=== PATIENT | male | born 1930 | race Caucasian/White ===

== ENCOUNTER 2018-12-16 11:55 | Inpatient (IN) | payer OTHER ==
[~2018-12-16] VITALS: Ht 177.8 cm; Wt 63.5 kg
[2018-12-16] MEDS ORDERED: LIPITOR20 MG PO ×2 (12:17→12:18)
[2018-12-16] MEDS ORDERED: FEOSOL325 MG PO (12:19)
[2018-12-16] MEDS ORDERED: PRILOSEC10 MG PO (12:19)
[2018-12-16] MEDS ORDERED: ZESTRIL40 M1 PO (12:20)
[2018-12-16] MEDS ORDERED: SIMETHICONE80 MG PO (12:20)
[2018-12-16] MEDS ORDERED: TAMS0.4C PO (12:21)
[2019-02-01] MEDS ORDERED: IPRATROPIU0.2 MG/1 M IH (15:52)
[2019-02-01] MEDS ORDERED: METOLAZONE2.5 MG PO (15:52)
[2019-02-01] MEDS ORDERED: ALBUTEROL2.5 MG/3 M IH (15:52)
[2019-02-01] MEDS ORDERED: BUMETANIDE0.5 MG PO (15:52)
[2019-02-01] MEDS ORDERED: ACIDOPHILUS-PE1 EAC2 PO (15:52)
[2019-02-01] MEDS ORDERED: PROTEINEX-18 LI30 ML PO (15:52)
[2019-02-01] MEDS ORDERED: PANTOPRAZOLE SO40 MG PO (15:52)
[2019-02-01] MEDS ORDERED: TAMS0.4C PO (15:52)
[2019-02-01] MEDS ORDERED: CALCIUM 500 +1 EACH PO (15:52)
[2019-02-01] MEDS ORDERED: LIPITOR20 MG PO (15:52)
[2019-02-01] MEDS ORDERED: FEOSOL325 MG PO (15:52)
== END 2019-02-01 18:35 | DRG 356 ==
LOC: ER 11:55 → MEDJ 12-17 10:14 → ICU 01-18 15:22 → MEDJ 01-26 14:31
PROVIDERS: Radiology Vascular & Interventional Radiology; ADMIT Internal Medicine
PROC: BT43ZZZ Ultrasonography of Bilateral Kidneys (ICD-10-PCS; 2018-12-17)
PROC: 0T9B70Z Drainage of Bladder with Drainage Device, Via Natural or Artificial Opening (ICD-10-PCS; 2018-12-18)
PROC: 0DBL8ZX Excision of Transverse Colon, Via Natural or Artificial Opening Endoscopic, Diagnostic (ICD-10-PCS; 2018-12-20)
PROC: 8E0ZXY6 Isolation (ICD-10-PCS; 2018-12-21)
PROC: 3E0F7GC Introduction of Other Therapeutic Substance into Respiratory Tract, Via Natural or Artificial Opening (ICD-10-PCS; 2019-01-06)
PROC: BW24ZZZ Computerized Tomography (CT Scan) of Chest and Abdomen (ICD-10-PCS; 2019-01-07)
PROC: 4A033R1 Measurement of Arterial Saturation, Peripheral, Percutaneous Approach (ICD-10-PCS; 2019-01-07)
PROC: 4A12X4Z Monitoring of Cardiac Electrical Activity, External Approach (ICD-10-PCS; 2019-01-07)
PROC: B246ZZZ Ultrasonography of Right and Left Heart (ICD-10-PCS; 2019-01-08)
PROC: 02HV33Z Insertion of Infusion Device into Superior Vena Cava, Percutaneous Approach (ICD-10-PCS; 2019-01-08)
PROC: B54DZZZ Ultrasonography of Bilateral Lower Extremity Veins (ICD-10-PCS; 2019-01-08)
PROC: CB221ZZ Tomographic (Tomo) Nuclear Medicine Imaging of Lungs and Bronchi using Technetium 99m (Tc-99m) (ICD-10-PCS; 2019-01-16)
PROC: 06H03DZ Insertion of Intraluminal Device into Inferior Vena Cava, Percutaneous Approach (ICD-10-PCS; principal; 2019-01-16 20:00)
PROC: CD271ZZ Tomographic (Tomo) Nuclear Medicine Imaging of Gastrointestinal Tract using Technetium 99m (Tc-99m) (ICD-10-PCS; 2019-01-18)
PROC: 30233N1 Transfusion of Nonautologous Red Blood Cells into Peripheral Vein, Percutaneous Approach (ICD-10-PCS; 2019-01-18)
PROC: 0BH17EZ Insertion of Endotracheal Airway into Trachea, Via Natural or Artificial Opening (ICD-10-PCS; 2019-01-18)
PROC: 5A1945Z Respiratory Ventilation, 24-96 Consecutive Hours (ICD-10-PCS; 2019-01-18)
PROC: 0DH67UZ Insertion of Feeding Device into Stomach, Via Natural or Artificial Opening (ICD-10-PCS; 2019-01-18)
PROC: 3E0G76Z Introduction of Nutritional Substance into Upper GI, Via Natural or Artificial Opening (ICD-10-PCS; 2019-01-18)
DX: K52.89 Other specified noninfective gastroenteritis and colitis (principal); K55.039 Acute (reversible) ischemia of large intestine, extent unspecified; J16.8 Pneumonia due to other specified infectious organisms; I26.99 Other pulmonary embolism without acute cor pulmonale; R57.1 Hypovolemic shock; J96.01 Acute respiratory failure with hypoxia; B37.1 Pulmonary candidiasis; K57.31 Diverticulosis of large intestine without perforation or abscess with bleeding; I50.41 Acute combined systolic (congestive) and diastolic (congestive) heart failure; N17.8 Other acute kidney failure; A09 Infectious gastroenteritis and colitis, unspecified; J91.8 Pleural effusion in other conditions classified elsewhere; J98.11 Atelectasis; I82.442 Acute embolism and thrombosis of left tibial vein; A06.0 Acute amebic dysentery; I82.413 Acute embolism and thrombosis of femoral vein, bilateral; I82.431 Acute embolism and thrombosis of right popliteal vein; I13.0 Hypertensive heart and chronic kidney disease with heart failure and stage 1 through stage 4 chronic kidney disease, or unspecified chronic kidney disease; E87.1 Hypo-osmolality and hyponatremia; D62 Acute posthemorrhagic anemia; J44.1 Chronic obstructive pulmonary disease with (acute) exacerbation; J45.21 Mild intermittent asthma with (acute) exacerbation; E44.0 Moderate protein-calorie malnutrition; E87.8 Other disorders of electrolyte and fluid balance, not elsewhere classified; K21.9 Gastro-esophageal reflux disease without esophagitis; E78.49 Other hyperlipidemia; N40.0 Benign prostatic hyperplasia without lower urinary tract symptoms; I12.9 Hypertensive chronic kidney disease with stage 1 through stage 4 chronic kidney disease, or unspecified chronic kidney disease; N18.2 Chronic kidney disease, stage 2 (mild); R31.0 Gross hematuria; E87.6 Hypokalemia; M62.59 Muscle wasting and atrophy, not elsewhere classified, multiple sites; D72.828 Other elevated white blood cell count; K76.89 Other specified diseases of liver; R60.1 Generalized edema; K44.9 Diaphragmatic hernia without obstruction or gangrene; I70.0 Atherosclerosis of aorta; I35.0 Nonrheumatic aortic (valve) stenosis; N28.1 Cyst of kidney, acquired; D63.8 Anemia in other chronic diseases classified elsewhere; Z16.30 Resistance to unspecified antimicrobial drugs; Z79.01 Long term (current) use of anticoagulants; Z99.81 Dependence on supplemental oxygen; I07.1 Rheumatic tricuspid insufficiency

== ENCOUNTER 2019-02-14 10:53 | Emergency (ER) | payer OTHER ==
[~2019-02-14] VITALS: Ht 165.1 cm; Wt 63.5 kg
[~2019-02-14 10:53] MED LIST: ACIDOPHILUS-PE1 EAC2 PO; ALBUTEROL2.5 MG/3 M IH; BUMETANIDE0.5 MG PO; CALCIUM 500 +1 EACH PO; FEOSOL325 MG PO; IPRATROPIU0.2 MG/1 M IH; LIPITOR20 MG PO; METOLAZONE2.5 MG PO; PANTOPRAZOLE SO40 MG PO; PRILOSEC10 MG PO; PROTEINEX-18 LI30 ML PO; SIMETHICONE80 MG PO; TAMS0.4C PO; ZESTRIL40 M1 PO
[2019-02-14] MEDS ORDERED: KAOPECTATE262 MG/15 PO (10:57)
[2019-02-14] MEDS ORDERED: PROTEINEX1 TA1 PO (10:58)
[2019-02-14] MEDS ORDERED: [UNRECOGNIZED DRUG - OTHER] PO (10:59)
[2019-02-14] MEDS ORDERED: ZAROXOLYN2.5 MG PO (10:59)
[2019-02-14] MEDS ORDERED: NORVASC10 MG PO (10:59)
== END 2019-02-14 22:39 | disposition home or self-care (01) ==
LOC: ER 10:53
DX: K52.89 Other specified noninfective gastroenteritis and colitis (principal)

== ENCOUNTER 2019-02-16 14:28 | Emergency (ER) | payer OTHER ==
[~2019-02-16] VITALS: Ht 165.1 cm; Wt 63.5 kg
[~2019-02-16 14:28] MED LIST changes: +KAOPECTATE262 MG/15 PO; +NORVASC10 MG PO; +PROTEINEX1 TA1 PO; +ZAROXOLYN2.5 MG PO; +[UNRECOGNIZED DRUG - OTHER] PO
== END 2019-02-16 22:21 | disposition home or self-care (01) ==
LOC: ER 14:28
DX: J06.9 Acute upper respiratory infection, unspecified (principal); R50.9 Fever, unspecified

== ENCOUNTER 2019-05-13 01:11 | Inpatient (IN) | payer OTHER ==
[~2019-05-13] VITALS: Ht 172.7 cm; Wt 63.5 kg
--- NOTE | 2019-05-13 01:28 | NUR ---
SE RECIBE PACIENTE EN AMBULANCIA ALERTA Y ORIENTADA X3 CON LA QUEJA PRINCIPAL DE DOLOR EPIGASTRICO DESDE LAS 0000AM. NIEGA NAUSEAS, VOMITOS O DIARREAS.
--- NOTE | 2019-05-13 02:56 | NUR ---
PT ALERTA Y ORIENTADO X3 ESFERAS EN COMPANIA DE CUIDADORA. SE LE ORIENTA SOBRE TX Y REFIERE ENTEDER. SE NIR MUESTRAS DE AGUILAR Y VENOPUNCION CON TECNICAS ASEPTICAS. SE ADMINISTRA MEDICAMENTO ORDENADO. PT TOLERAN TX.
--- NOTE | 2019-05-13 06:55 | NUR ---
PTE CON ULCERA EN AREA SACRAL
--- NOTE | 2019-05-13 07:35 | NUR ---
SE RECIBE PTE EN CUBICULO #9 EN AVERY CON BARANDAS ELEVADA Y TIMBRE ACCESIBLE PTE ALERTA Y CONCIENTE POR 3 EN COMPANIA DE GARCIA FAMILIAR, PTE PENDIENTE COLECTAR LA MUESTRAS DE ORINA, SE OBSERVA VENUPUNCION PATENTE Y MIGUELITO DE EDEMA PTE EN ESPERA DE ESTUDIO DE CT.
--- NOTE | 2019-05-13 15:56 | NUR ---
PTE ES REEVALUADO POR ,EMILIANO REALIZA ORDEN Y SE NIR MUESTRAS Y SE ENVIAN A LABORATORIO.
--- NOTE | 2019-05-13 16:17 | NUR ---
SE OFRECE CAMBIO DE PANAL Y SABANAS EN COMPANIA E LAB ENGINEER. PACIENTE PRESENTA ULCERA EN AREA SACRAL.
== END 2019-05-28 09:18 | disposition expired | DRG 385 ==
LOC: ER 01:11 → SEC-K 21:01 → MEDJ 21:01
PROVIDERS: ADMIT Internal Medicine
PROC: BW21Y0Z Computerized Tomography (CT Scan) of Abdomen and Pelvis using Other Contrast, Unenhanced and Enhanced (ICD-10-PCS; principal; 2019-05-13)
PROC: 4A033R1 Measurement of Arterial Saturation, Peripheral, Percutaneous Approach (ICD-10-PCS; 2019-05-14)
PROC: 8E0ZXY6 Isolation (ICD-10-PCS; 2019-05-14)
PROC: 4A12X4Z Monitoring of Cardiac Electrical Activity, External Approach (ICD-10-PCS; 2019-05-17)
PROC: 30233N1 Transfusion of Nonautologous Red Blood Cells into Peripheral Vein, Percutaneous Approach (ICD-10-PCS; 2019-05-19)
DX: K51.818 Other ulcerative colitis with other complication (principal); J96.01 Acute respiratory failure with hypoxia; I50.31 Acute diastolic (congestive) heart failure; J90 Pleural effusion, not elsewhere classified; Q61.02 Congenital multiple renal cysts; I96 Gangrene, not elsewhere classified; I13.0 Hypertensive heart and chronic kidney disease with heart failure and stage 1 through stage 4 chronic kidney disease, or unspecified chronic kidney disease; E44.0 Moderate protein-calorie malnutrition; N17.8 Other acute kidney failure; I82.4Z3 Acute embolism and thrombosis of unspecified deep veins of distal lower extremity, bilateral; J44.1 Chronic obstructive pulmonary disease with (acute) exacerbation; D62 Acute posthemorrhagic anemia; L89.152 Pressure ulcer of sacral region, stage 2; M62.58 Muscle wasting and atrophy, not elsewhere classified, other site; R53.81 Other malaise; I07.1 Rheumatic tricuspid insufficiency; I70.0 Atherosclerosis of aorta; I11.0 Hypertensive heart disease with heart failure; E87.8 Other disorders of electrolyte and fluid balance, not elsewhere classified; E86.0 Dehydration; N18.2 Chronic kidney disease, stage 2 (mild); N40.0 Benign prostatic hyperplasia without lower urinary tract symptoms; K80.80 Other cholelithiasis without obstruction; Z74.01 Bed confinement status; Z66 Do not resuscitate
CPT/HCPCS: 72191; 74175